=== PATIENT | female | born 1995 | race African-American/Black ===

== ENCOUNTER 2020-12-22 12:09 | Outpatient (CLI) | payer MEDICAID ==
[2020-12-22] MEDS ORDERED: LACTATED RINGERS 1,000 ML IV ONE (13:24)
[2020-12-22 13:37] VITALS: BP 103/62
== END 2020-12-22 15:09 | disposition home or self-care (01) ==
LOC: TRG 12:09
PROVIDERS: ATTEND Obstetrics & Gynecology
DX: Z34.92 Encounter for supervision of normal pregnancy, unspecified, second trimester (principal); Z3A.27 27 weeks gestation of pregnancy
CPT/HCPCS: 59025